=== PATIENT | female | born 1990 | race Caucasian/White ===

== ENCOUNTER 2021-12-05 20:06 | Emergency (ER) | payer OTHER ==
[~2021-12-05] VITALS: Ht 175.3 cm; Wt 70.3 kg
[2021-12-05 20:32] VITALS: BP 131/91
[2021-12-05] MEDS ORDERED: LIDOCAINE 1% VIAL ONE (20:34)
[2021-12-05 20:46] VITALS: BP 131/91
[2021-12-05] MEDS ORDERED: TRIPLE ANTIBIOTIC OINTMENT TP ONE (20:49)
[2021-12-05] MEDS ORDERED: BOOSTRIX IM ONE ×2 (20:49→21:00)
--- NOTE | 2021-12-05 20:56 | ER.PDOC ---
General Chief Complaint: Extremities Stated Complaint: FINGER LAC Time seen by MD: 20:50 Source: patient Exam Limitations: no limitations History of Present Illness Initial Comments This is a 31-year-old female who comes to the emergency department complaining of a laceration to her right long and ring fingers. She cut them while she was trying to open up something with a zip tie. She has no distal numbness or tingling, and she is able to flex and extend her fingers without any difficulty. Where: home Severity: moderate Exacerbated By: nothing Relieved By: nothing Past Medical History Medical History: no pertinent history Surgical History: breast augmentation, , tonsillectomy Social History Alcohol Use: occassionally Drug Use: none Review of Systems Constitutional: denies no symptoms reported, denies see HPI, denies chills, denies diaphoresis, denies fever, denies malaise, denies weakness, denies other EENTM: denies no symptoms reported, denies see HPI, denies eye pain, denies blurred vision, denies tearing, denies double vision, denies ear pain, denies ear discharge, denies nose pain, denies nose congestion, denies throat pain, denies throat swelling, denies mouth pain, denies mouth swelling, denies other Respiratory: denies no symptoms reported, denies see HPI, denies cough, denies orthopnea, denies shortness of breath, denies stridor, denies wheezing, denies other Cardiovascular: denies no symptoms reported, denies see HPI, denies chest pain, denies edema, denies palpitations, denies syncope, denies other Gastrointestinal: denies no symptoms reported, denies see HPI, denies abdominal pain, denies constipation, denies diarrhea, denies nausea, denies vomiting, denies other Genitourinary: denies no symptoms reported, denies see HPI, denies discharge, denies dysuria, denies frequency, denies hematuria, denies pain, denies other Musculoskeletal: denies no symptoms reported, denies see HPI, denies back pain, denies gout, denies joint pain, denies joint swelling, denies muscle pain, denies muscle stiffness, denies neck pain, denies other Skin: denies no symptoms reported, denies see HPI, denies change in color, denies change in hair/nails, denies dryness, denies lesions, denies lumps, denies rash, denies other Psychiatric/Neurological: denies no symptoms reported, denies see HPI, denies anxiety, denies depressed, denies emotional problems, denies headache, denies numbness, denies paresthesia, denies pre-existing deficit, denies seizure, denies tingling, denies tremors, denies weakness, denies other All Other Systems: Reviewed and Negative Physical Exam General Appearance: alert, no distress Upper Extremity: nml inspection, non-tender, no edema, nml ROM, joints nml Skin: color nml, warm/dry Vascular: no vascular compromise Neuro/Psych: sensation nml, motor nml Central Exam: oriented X3, CN's nml as tested, nml speech, nml cognition, nml mood/affect EENT: eyes nml inspection, ENT nml inspection, pharynx nml Neck/Back: nml inspection Respiratory: no resp distress, breath sounds nml CVS: reg rate & rhythm, heart sounds nml Abdomen: non-tender, no organomegaly, nml bowels sounds Comments 1.5 cm laceration on the right ring finger on the posterior side near the DIP joint. 1 cm laceration to the right long finger at the DIP joint. There is a small superficial laceration at the DIP joint of the fifth digit Normal extension of the fingers under load. ED LACERATION WOUND REPAIR Wound Length (cm): 2 Wound cleaned: betadine Distal NVT: neuro intact, vasc intact Anesthesia type: local Anesthesia: 1% Lidocaine Wound's Depth, Shape: linear Wound Explored: no foreign body removed Tendon Intact: Yes Wound Debrided: minimal Wound Repaired With: sutures Suture Size/Type: 5:0, nylon Suture Style: running Layer Closure?: No Retention sutures placed: No Sterile Dressing Applied?: Yes Sling Applied?: No Results/Orders Results/Orders Orders - JACKELYN BENNETT MD Lidocaine Hcl (Lidocaine 1% Vial) (12/05/21 20:34) Diph,Pertuss(Acell),Tet Vac/Pf (Boostrix (12/05/21 20:49) Neomycin/Bacitracin/Polymyxinb (Triple A (12/05/21 20:49) Vital Signs Date Time Temp Pulse Resp B/P (MAP) Pulse Ox O2 Delivery O2 Flow Rate FiO2 12/05/21 20:46 97.9 81 16 131/91 (104) 98 Room Air 12/05/21 20:32 97.9 81 16 12/05/21 20:32 97.9 81 16 98 12/05/21 20:32 97.9 81 16 131/91 (104) 98 Room Air ER DEPART Departure Time of Disposition: 20:53 Disposition: 01 HOME / SELF CARE / HOMELESS Impression: Primary Impression: Laceration of right middle finger Additional Impression: Laceration of right ring finger Condition: Stable Patient Instructions: Laceration Care, Adult Referrals: PCP,UNKNOWN (PCP) PRIMARY CARE PROVIDER Additional Instructions: Sutures out in 10 days. Duration or Time Spent with Pa: Unknown Problem Qualifiers Primary Impression: Laceration of right middle finger Encounter type: initial encounter Damage to nail status: without damage Foreign body presence: without foreign body Qualified Codes: S61.212A - Laceration without foreign body of right middle finger without damage to nail, initial encounter Additional Impression: Laceration of right ring finger Encounter type: initial encounter Damage to nail status: without damage Foreign body presence: without foreign body Qualified Codes: S61.214A - Laceration without foreign body of right ring finger without damage to nail, initial encounter JACKELYN BENNETT MD Dec 05, 2021 20:56
[2021-12-05 21:00] VITALS: BP 124/72
== END 2021-12-05 21:04 | disposition home or self-care (01) ==
LOC: ER 20:06
DX: S61.214A Laceration without foreign body of right ring finger without damage to nail, initial encounter (principal); S61.212A Laceration without foreign body of right middle finger without damage to nail, initial encounter; W45.8XXA Other foreign body or object entering through skin, initial encounter; Y93.89 Activity, other specified; Y92.89 Other specified places as the place of occurrence of the external cause; Y99.8 Other external cause status
CPT/HCPCS: 12001; 90471; 90715; 99283; J2001